=== PATIENT | male | born 1940 | race Caucasian/White ===

== ENCOUNTER 2025-06-27 14:51 | Emergency (ER) | payer OTHER, SELFPAY ==
[2025-06-27 14:59] VITALS: BP 143/94; PULSE 67; RESP 20; TEMP 35.4; O2SAT 95; BMI 31.6
[2025-06-27 15:23] LABS: Glucose, Point-of-Care* 90 mg/dl (60-115)
--- NOTE | 2025-06-27 15:37 | ED_ITS ---
HPI - General Adult General Date Seen: 06/27/25 Chief complaint: Diabetic Related Problem Stated complaint: Blood sugar down low Time Seen by Provider: 06/27/25 15:07 Source: patient Mode of arrival: ambulatory Limitations: no limitations History of Present Illness HPI narrative: Patient is a 4-year-old male presenting to the emergency department with his girlfriend and daughter for hypoglycemia. In 2 days ago he an episode where he felt very weak and was hypoglycemic. He was give his glucose tabs and felt better. Had another episode today he had be given muscle glucose tabs during his blood sugar back up. He states he takes 30 to of glargine every morning and 18 units of aspart morning and before his for p.r.n. sooner. states he does not eat much breakfast and all he eats before his 4 p.m. dinner is a piece of toast. They are not aware of issues like this before. Denies having issues with his blood sugar before. No other concerns noted. Family states he appears back to normal at this time. The blood sugar and triage was 90. Related Data Allergies Allergy/AdvReac Type Severity Reaction Status Date / Time No Known Drug Allergies Allergy Verified 06/27/25 15:03 Review of Systems Status of ROS: Reports: 10 or more systems reviewed and unremarkable except as noted in History and below Exam Narrative: Exam Narrative: Const: Well-nourished, Well-developed, in no distress Eyes: PERRL, no conjunctival injection, and symmetrical lids HENT: Atraumatic external nose and ears. Moist mucous membranes. Neck: Symmetric, trachea midline, No thyromegaly. CVS: RRR, No murmurs or gallops. Peripheral pulses 2+ and equal in all extremities RESP: Unlabored respiratory effort. Clear to auscultation bilaterally. GI: Nontender/Nondistended, No rebound or guarding. MSK:Extremities w/o deformity, Normal Active ROM Skin: Warm, Dry. No rashes or lesions. Neuro: Normal Muscle tone, No focal neurological deficits. Psych: Awake, Alert, & Oriented x3. Appropriate mood and affect. Const: Vital Signs, click to edit/add: Vital Signs - 24 hr 06/27/25 14:59 Temperature 95.8 F L Pulse Rate [Pulse Oximeter] 67 Respiratory Rate 20 Blood Pressure [Ri ght Upper Arm] 143/94 H Pulse Oximetry 95 Oxygen Delivery Me thod Room Air Course Vital Signs Vital signs: Initial Vital Signs Temperature 95.8 F L 06/27/25 14:59 Temperature Source Temporal Artery Scan 06/27/25 14:59 Pulse Rate 67 06/27/25 14:59 Respiratory Rate 20 06/27/25 14:59 Blood Pressure 143/94 H 06/27/25 14:59 Blood Pressure Mean 110 H 06/27/25 14:59 Blood Pressure Position Sitting 06/27/25 14:59 Pulse Oximetry 95 06/27/25 14:59 Oxygen Delivery Method Room Air 06/27/25 14:59 Vital Signs Temperature 95.8 F L 06/27/25 14:59 Pulse Rate 67 06/27/25 14:59 Respiratory Rate 20 06/27/25 14:59 Blood Pressure 143/94 H 06/27/25 14:59 Pulse Oximetry 95 06/27/25 14:59 Oxygen Delivery Method Room Air 06/27/25 14:59 Temperature 95.8 F L 06/27/25 14:59 Pulse Rate 67 06/27/25 14:59 Respiratory Rate 20 06/27/25 14:59 Blood Pressure 143/94 H 06/27/25 14:59 Pulse Oximetry 95 06/27/25 14:59 Oxygen Delivery Method Room Air 06/27/25 14:59 Medical Decision Making MDM Narrative Medical decision making narrative: Patient is an 84-year-old male presenting for hyperglycemia. I did review his continuous blood sugar monitor and for the past couple weeks every single time around noon his blood sugar dipped low. It is very consistent. This is consistent with him not eating much in morning and taking large amount of insulin in the morning. When it does start tip is usually when his morning insulin starts to run out in the long acting insulin starts to kick in. I do believe we need to adjust his insulin. Will monitor him though to make sure blood sugar does not drop again. Plan is to cut his morning insulin to 9 units and continue his long-acting at the 32. If he continues to drop will have him cut the 32-30 in the morning. Also told him to have an extensive log of what he eats and when he eats every single day before his appointment with his primary care provider this upcoming Saturday. Repeat blood sugar is 156 and is safe for discharge Lab Data Labs: Lab Results 06/27/25 Range/Units 15:00 POC Glucose 90 (60-115) mg/dl Discharge Plan Discharge Clinical Impression: Hypoglycemia Patient Disposition: Home, Self-Care Condition: Stable Instructions: What to Do if Your Blood Sugar is Low (ED) Additional Instructions: I believe your blood sugars going low due to too much insulin and not eating enough in the mornings. You should cut your morning NovoLog to 9 units. Continue take your Lantus at 32 units. If he continued to be low at around noon cut your glargine down to 30 units and keep the NovoLog at 9 units. Keep your afternoon NovoLog at 18 units. I think will be very beneficial for your primary care provider on Saturday if you log all food you eat and when you eat it every single day. Stand Alone Forms: [employer] Info Instructions
[2025-06-27 16:01] LABS: Glucose, Point-of-Care* 156 mg/dl (60-115)
--- OUTSIDE RECORDS SUMMARY | 2025-06-27 16:30 | XMS_ITS | Clinical Summary ---
Author Organization [facility] Address [address] [place] [id number] Care Team Providers Care Integrity Consultant Name Role Phone Pcp, No Primary Care Provider Unavailabl e Allergies No known active allergies Medications metFORMIN (GLUCOPHAGE XR) 500 mg Extended-Releas e tablet Take 3 Tablets by mouth once daily. 2 Active lisinopriL (PRINIVIL; ZESTRIL) 40 mg tablet Take 1 Tablet by mouth once daily. 1 Active insulin glargine, U-100, 100 unit/mL (3 mL) pen Inject 27 units subcutaneous once daily. 1 Active glipiZIDE extended-releas e (GLUCOTROL XL) 10 mg Extended-Releas e tablet Take 2 Tablets by mouth once daily. 1 Active atorvastatin (LIPITOR) 80 mg tablet Take 1 Tablet by mouth once daily. 1 Active amLODIPine (NORVASC) 5 mg tablet Take 1 Tablet by mouth once daily. 2 Active alogliptin (NESINA) 25 mg tablet Take 1 Tablet by mouth once daily. 1 Active diclofenac topical (VOLTAREN) 1 % gel Apply 2 g topically to affected area(s) every 8 hours if needed. 1 Active Active Problems Problem Noted Date Diagnosed Date URI with cough and congestion 04/02/2022 Social History Tobacco Use Types Packs/Day Years Used Date Smoking Tobacco: Never Assessed Sex and Gender Information Value Date Recorded Sex Assigned at Not on file Legal Sex Male 7:44 PM CDT Gender Identity Not on file Sexual Orientation Not on file Last Filed Vital Signs Vital Sign Reading Time Taken Comments Blood Pressure 158/73 10/02/2021 7:57 PM CDT Pulse 87 10/02/2021 7:57 PM CDT Temperature 36.4 C (97.5 F) 10/02/2021 7:57 PM CDT Respiratory Rate 18 10/02/2021 7:57 PM CDT Oxygen Saturation 96% 10/02/2021 7:57 PM CDT Inhaled Oxygen Concentration - - Weight - - Height - - Body Mass Index - - Plan of Treatment Health Maintenance Due Date Last Done Comments Tetanus booster 1953 Depression screening for age 12+ 1954 BMI (ht and wt on same day) for age 18+ 1960 Pneumococcal series for age 50+ (1 of 1 - PCV) 1992 Zoster (shingles) series for age 50+ (1 of 2) 1992 Medicare Wellness for age 65+ 2007 RSV vaccine for adults or (1 - 1-dose 75+ series) 2017 COVID-19 vaccine series (2024- season) 2025 Influenza Vaccine (#1) 2025 Hepatitis B series for 19+ Aged Out N o longer eligible based on patient's age to complete this topic Insurance MEDICARE [place] ONLY Care Teams Integrity Consultant Relationship Specialty Start Date End Date Pcp, No . PCP - General 07/03/23
== END 2025-06-27 16:27 | disposition home or self-care (01) ==
LOC: ED 16:28
PROVIDERS: Emergency Provider Student in an Organized Health Care Education/Training Program
DX: E11.649 Type 2 diabetes mellitus with hypoglycemia without coma (principal); Z79.4 Long term (current) use of insulin
CPT/HCPCS: 36415; 82947; 82962; 99283